=== PATIENT | female | born 1960 | race Caucasian/White ===

== ENCOUNTER 2023-04-26 11:34 | Outpatient (CLI) | payer OTHER | END 2023-04-26 11:35 | disposition home or self-care (01) | LOC: NAV RAD 11:34 | PROVIDERS: ATTEND Family Medicine | DX: M51.16 Intervertebral disc disorders with radiculopathy, lumbar region (principal); J44.9 Chronic obstructive pulmonary disease, unspecified; M47.26 Other spondylosis with radiculopathy, lumbar region | CPT/HCPCS: 71046; 72100 ==